=== PATIENT | female | born 1975 | race Hispanic/Latino ===

== ENCOUNTER 2017-05-27 15:37 | Emergency (ER) | payer OTHER ==
[2017-05-27 15:48] VITALS: BP 122/77; PULSE 62; RESP 20; TEMP 97.8; O2SAT 98
--- NOTE | 2017-05-27 16:09 | ED PDOC ---
Upper Extremity Pain/Injury Time Seen by Provider: 05/27/17 15:45 Chief Complaint (Nursing): Upper Extremity Problem/Injury Chief Complaint (Provider): Upper Extremity Problem/Injury History Per: Patient History/Exam Limitations: no limitations Current Symptoms Are (Timing): Still Present Additional Complaint(s): 42 y/o female (right handed) presents to the emergency department with a tingling sensation and "bump" to the right thumb status post fall about 3 weeks ago. Patient states she had a few drinks when she slipped, fell, and dislocated her thumb last April 2017. Reports she put the thumb back in but had not felt the same since. Patient is worried because she will undergo knee surgery soon and is concerned that she will be using her hands more often compared to now. Denies any further medical complaints. Past Medical History Reviewed: Historical Data, Nursing Documentation, Vital Signs Vital Signs: Last Vital Signs Temp 97.8 F 05/27/17 15:45 Pulse 62 05/27/17 15:45 Resp 20 05/27/17 15:45 BP 122/77 05/27/17 15:45 Pulse Ox 98 05/27/17 15:45 - Medical History PMH: No Chronic Diseases - Surgical History Other surgeries: Knee surgery (06/2017) - Family History Family History: States: Unknown Family Hx - Home Medications Home Medications: Ambulatory Orders Medication Instructions Recorded Ibuprofen [Motrin] 600 mg PO Q6 #20 tab 05/27/17 - Allergies Allergies/Adverse Reactions: Allergies Allergy/AdvReac Type Severity Reaction Status Date / Time No Known Allergies Allergy Verified 05/27/17 15:44 Review of Systems ROS Statement: Except As Marked, All Systems Reviewed And Found Negative Musculoskeletal: Positive for: Hand Pain (Right thumb tingling) Physical Exam - Reviewed Nursing Documentation Reviewed: Yes Vital Signs Reviewed: Yes - Physical Exam Appears: Positive for: Non-toxic, No Acute Distress Head Exam: Positive for: ATRAUMATIC, NORMAL INSPECTION, NORMOCEPHALIC Skin: Positive for: Normal Color, Warm, Dry Extremity: Positive for: Normal ROM (Full), Tenderness (Tenderness to the right MCP joint.). Negative for: Swelling (or ecchymosis noted) Neurologic/Psych: Positive for: Alert, Oriented (x3) - ECG O2 Sat by Pulse Oximetry: 98 (RA) Pulse Ox Interpretation: Normal Medical Decision Making Medical Decision Making: Time: 16:02 Initial impression: Right thumb injury s/p fall. Rule out fracture Initial plan: --Hand Right thumb X-ray --Reevaluation Time: 16:58 --Hand x-ray FINDINGS: RIGHT THUMB: Normal right thumb, without fracture or focal lesion. Remainder of the right hand (as seen on the AP view) grossly unremarkable. JOINTS: Joint spaces preserved. No significant osteoarthritis. SOFT TISSUES: Normal. No radiopaque foreign body seen. OTHER FINDINGS: None. IMPRESSION: No definitive radiographic evidence of acute displaced fracture nor dislocation. If symptoms -pain persists, consider followup MRI for further evaluation if necessary Time: 1700 Patient is medically stable, and requires no further treatment in the ED at this time. Patient will be discharged home with Rx for Motrin 600 mg. Counseling was provided and all questions were answered regarding diagnosis and need for follow up with PMD. There is agreement to discharge plan. Return if symptoms persist or worsen. Clinical Impression: Thumb Sprain Scribe Attestation: Documented by Monte Dang, acting as a scribe for Kassi Wing PA-C Provider Scribe Attestation: All medical record entries made by the Scribe were at my direction and personally dictated by me. I have reviewed the chart and agree that the record accurately reflects my personal performance of the history, physical exam, medical decision making, and the department course for this patient. I have also personally directed, reviewed, and agree with the discharge instructions and disposition. Disposition - Clinical Impression Clinical Impression: Thumb sprain - Patient ED Disposition Is Patient to be Admitted: No Counseled Patient/Family Regarding: Studies Performed, Diagnosis, Need For Followup, Rx Given - Disposition Disposition: Routine/Home Disposition Time: 17:00 Condition: STABLE Prescriptions: Ibuprofen [Motrin] 600 mg PO Q6 #20 tab Instructions: Finger Sprain (ED) Forms: [employer] ([employer]) - POA Present On Arrival: None
--- NOTE | 2017-05-27 17:00 | RAD ---
PROCEDURE: Right Thumb radiographs. HISTORY: pain s/p slip and fall 3 w ago COMPARISON: None. TECHNIQUE: PA radiograph of the right hand, as well as spot oblique and lateral images of thumb were obtained. FINDINGS: RIGHT THUMB: Normal right thumb, without fracture or focal lesion. Remainder of the right hand (as seen on the AP view) grossly unremarkable. JOINTS: Joint spaces preserved. No significant osteoarthritis. SOFT TISSUES: Normal. No radiopaque foreign body seen. OTHER FINDINGS: None. IMPRESSION: No definitive radiographic evidence of acute displaced fracture nor dislocation. If symptoms -pain persists, consider followup MRI for further evaluation if necessary
== END 2017-05-27 17:19 | disposition home or self-care (01) ==
LOC: H.ER 15:37
DX: S63.621A Sprain of interphalangeal joint of right thumb, initial encounter (principal); W01.0XXA Fall on same level from slipping, tripping and stumbling without subsequent striking against object, initial encounter; Y92.89 Other specified places as the place of occurrence of the external cause